=== PATIENT | male | born 1965 | race Caucasian/White ===

== ENCOUNTER → 2016-07-11 | Outpatient (CLI) | payer OTHER ==
--- NOTE | 2016-07-11 15:26 | P.PN ---
Subjective This is follow-up visit for this patient with a history of severe and chronic neck pain secondary to cervical spondylosis with facet arthropathy, we have done interventional pain management injection, left side radiofrequency ablation cervical area C5 /C6 , and is currently on pain medications [place] 10/ 325 every 6 hours ,Patient denies any side effects of the medication, denies excessive drowsiness or sleepiness, denies suicidal ideation, and reports that the current pain medication , currently patient complaining of mid back pain Physical Examinations : 1-Constitutiona : Cooperative , not in acute distress . 2-HEENT : nech ; supple , no Lymphadenopathy , no Thyromegaly , normal thyroid size . eyes : no ptosis , no icterus, no photophobia . ENT : normal of hearing , normal oropharynx , no Thrush . 3- Respiratory : Chest clear to auscultations Bilaterally , no wheezing , no Rhonchi . 4- Cardiovascular : regular rate and rhythem , S1 , S2 , no S3 , no S4. 5- Gastrointestinal : abdomen soft no tenderness , bowel sounds positive all four quadrents , no organomegally . 6- Genitourinary : Defferred . 7- neurologic : Cranial nerve II to XII intact , no focal neurological deffecit . 8-psychatric : alert , oriented X 3 , appropriate affect , intact judgment and insight . 9-Lymphatic : no Lymphadenopathy . 10- musculoskeltal : exams of the cervical spine = motor strength normal bilateral upper extremities Exams of the thoracic spine= positive facet loading test thoracic area mainly on the left side from T7 to T12 exams of the Lumber spine = motor strength lower extremities ,thigh and legs .5/5 Assessment and plan = - Chronic neck pain secondary to cervical spondylosis status post radiofrequency ablation of the left-sided medial branch cervical area neck pain improved after the radiofrequency Mid back pain= (new ) patient had positive facet loading test thoracic area -chronic and current use of high-risk medication (Opioids). - diagnoses, prognosis, and treatment options including but not limited to physical therapy, surgical interventions, interventional therapies and medication management including narcotics and adjuvant medication were discussed with the patient and all questions answered to the patient's satisfactiion I discussed with the patient the option of referring him to physical therapy versus chiropractors and patient prefer to see chiropractors , and patient will be seen in the pain clinic in 4-6 weeks, if he continued to have pain after that is being evaluated by chiropractors then we'll order MRI of the thoracic spine Objective - Vital Signs Vital signs: Vital Signs Temp 98.2 F 07/11/16 14:41 Pulse 63 07/11/16 14:41 Resp 16 07/11/16 14:41 BP 142/85 07/11/16 14:41 Pulse Ox Intake & Output 07/10/16 07/11/16 07/11/16 18:59 06:59 18:59 Weight 117.934 kg
== END | disposition home or self-care (01) ==
CPT/HCPCS: 99211

== ENCOUNTER 2020-06-16 08:08 | Day surgery (SDC) | payer OTHER ==
[2020-06-12 16:36] VITALS: BMI 37.5
[~2020-06-16 08:08] MED LIST: LACTATED RINGERS 1,000 ML IV SCH; LIDOCAINE 1% (10MG/ML) FOR IV START INTRADERMA PRN
[2020-06-16 08:31] VITALS: TEMP 96.9
[2020-06-16] MEDS ORDERED: PROPOFOL 10 MG/ML 20 ML VIAL IV ONE (08:46)
[2020-06-16 08:47] LABS: Glucose,Whole Blood 92 mg/dL (75-99)
--- NOTE | 2020-06-16 09:31 | P.PCN ---
Date of Procedure: 06/16/20 Description of Procedure: BRIEF HISTORY: Patient is a 55-year-old male presenting for outpatient colonoscopy for screening for malignant neoplasm of the colon. The patient reports multiple colonoscopies in the past and isn't polypectomy previously. No change in bowel habits or family history of colon cancer. PROCEDURE PERFORMED: Colonoscopy with polypectomy. PREOPERATIVE DIAGNOSIS: Screening for malignant neoplasm of the colon, last colonoscopy 5 years ago. ESTIMATED BLOOD LOSS: Minimal. IV sedation per Anesthesia. PROCEDURE: After informed consent was obtained, the patient, was brought into the endoscopy unit. IV sedation was administered by Anesthesia under continuous monitoring. Digital rectal examination was normal. Initially the Olympus CF-190 flexible video colonoscope was then inserted in the rectum, gradually advanced into the cecum without any difficulty. Careful examination was performed as the scope was gradually being withdrawn. Ileocecal valve and the appendiceal orifice were visualized and appeared normal. Prep was excellent. Mucosa of the cecum, ascen ding colon, transverse colon, descending colon, sigmoid colon, and rectum appeared normal. Diverticula scattered throughout the left colon. A flat 8 mm ascending colon polyp was removed with hot snare polypectomy. A sessile 5 mm transverse colon polyp was removed with cold snare polypectomy. Retroflexion was performed in the rectum and no lesions were seen, low-grade internal hemorrhoids and skin tags noted. The patient tolerated the procedure well. IMPRESSION: Flat ascending colon polyp removed with hot snare polypectomy. Transverse colon polyp removed with cold snare polypectomy. Left colonic diverticulosis. Moderate internal hemorrhoids. RECOMMENDATIONS: Findings of this examination were discussed with the patient and his family. Okay to resume diet. Okay to resume medications. Await pathology from polypectomy. Recommend repeat colonoscopy in 5 years for history of colon polyps pending pathology from polypectomies.
[2020-06-16 09:44] VITALS: BP 117/76
[2020-06-16 11:11] VITALS: PULSE 54; RESP 20
== END 2020-06-16 10:31 | disposition home or self-care (01) ==
LOC: ORWHC2ENDO 08:08
PROVIDERS: ATTEND Internal Medicine
DX: Z12.11 Encounter for screening for malignant neoplasm of colon (principal); D12.2 Benign neoplasm of ascending colon; K63.5 Polyp of colon; K57.30 Diverticulosis of large intestine without perforation or abscess without bleeding; K64.8 Other hemorrhoids; K21.9 Gastro-esophageal reflux disease without esophagitis; Z86.010 Personal history of colon polyps; Z90.49 Acquired absence of other specified parts of digestive tract; Z98.890 Other specified postprocedural states; I10 Essential (primary) hypertension; E07.9 Disorder of thyroid, unspecified; M19.90 Unspecified osteoarthritis, unspecified site; G25.81 Restless legs syndrome; R42 Dizziness and giddiness; Z79.890 Hormone replacement therapy; Z79.891 Long term (current) use of opiate analgesic; Z79.899 Other long term (current) drug therapy
CPT/HCPCS: 88305; 45385; J2704

== ENCOUNTER → 2023-09-25 | Outpatient (CLI) | payer OTHER ==
--- NOTE | 2023-09-25 19:21 | MR ---
EXAMINATION TYPE: MR lumbar spine wo con DATE OF EXAM: 09/25/2023 COMPARISON: None HISTORY: Low back pain for 8 months that radiates down right leg, toes of right foot numb. TECHNIQUE: Multiplanar, multisequence images of the lumbar spine were acquired without IV contrast. Findings: Lumbar vertebral segments are normal in height and alignment and there is no fracture or subluxation. There is a moderate remote anterior wedge compression fracture of T11. There is mild degenerative disease at the T11/T12, T12/L1, L1/L2 and L2/L3 levels where there is mild disc space narrowing and spondylosis.. There is no focal lumbar disc protrusion or herniation. There is marked facet arthropathy at the L4-5 and L5-S1 levels and mild to moderate facet arthropathy at the L1-2, L2-3 and L3-4 levels. At the L4-5 level, there is a small synovial cyst from the right facet joint and in combination with circumferential disc bulge, facet hypertrophy and thickening ligamentum flavum, there is a severe spi nal stenosis. The neuroforamina are patent bilaterally. The conus medullaris and cauda equina appear normal. Visualized sacrum and SI joints are normal. IMPRESSION: 1. Severe spinal stenosis at the L4-5 level as described above. 2. Moderate remote compression fracture T11. 3. Mild degenerative disc disease in the lower thoracic and upper lumbar spine but no lumbar disc her niation. 4. No significant neural foraminal stenosis. 5. Moderate to marked multilevel facet arthropathy greatest at the L4-5 and L5-S1 levels
== END | disposition home or self-care (01) ==
LOC: RADMRIMAIN 16:50
PROVIDERS: ATTEND Family Medicine
DX: M51.35 Other intervertebral disc degeneration, thoracolumbar region (principal); M47.816 Spondylosis without myelopathy or radiculopathy, lumbar region; M48.061 Spinal stenosis, lumbar region without neurogenic claudication
CPT/HCPCS: 72148

== ENCOUNTER → 2023-11-06 | Outpatient (CLI) | payer OTHER ==
--- NOTE | 2023-11-06 10:35 | CT ---
EXAMINATION TYPE: CT lumbar spine wo con CT DLP: 945 mGycm, Automated exposure control for dose reduction was used. DATE OF EXAM: 11/06/2023 10:28 AM COMPARISON: 11/05/2014. CLINICAL INDICATION:Male, 58 years old with history of M54.50 LOW BACK PAIN, UNSPECIFIED; PHH, Low ba ck pain TECHNIQUE: Multiple axial images were obtained from the midportion of T11 through the sacroiliac eric nts. Soft tissue and bone windows in coronal and sagittal planes were obtained and reviewed. Contrast used: mL of , (None, if empty). Oral contrast used: (None, if empty). FINDINGS: Alignment: There are 5 lumbar type vertebral bodies. Mild grade 1 anterolisthesis of L4 on L5. Bone: No evidence of fracture is identified. Multilevel degeneration changes with osteophyte formati on, disc space narrowing, facet joint arthropathy. Anterior wedging of the T11 vertebral body with 50 % height loss anteriorly. No evidence retropulsion. Severe facet joint arthropathy worse in the lower spine. Pseudoarthrosis of the spinous processes. Discs: T12-L1: No spinal canal or neural foraminal stenosis is identified. L1-L2: No spinal canal or neural foraminal stenosis is identified. L2-L3: Facet joint arthropathy and disc bulging result with moderate spinal canal stenosis and mild b ilateral neural foraminal stenosis. L3-L4: Facet joint arthropathy and disc bulging result with mild spinal canal stenosis and mild bilat eral neural foraminal stenosis. L4-L5: Mild grade 1 anterolisthesis of L4 and L5. Facet joint arthropathy and disc bulging result wit h moderate to severe spinal canal stenosis and mild bilateral neural foraminal stenosis. L5-S1: No spinal canal or neural foraminal stenosis is identified. Other: None IMPRESSION: 1. No evidence for spinal fracture. 2. Mild grade 1 anterolisthesis of L4 and L5. Facet joint arthropathy and disc bulging result with m oderate to severe spinal canal stenosis and mild bilateral neural foraminal stenosis. 3. Moderate to severe degeneration changes of the spine. 4. Anterior wedging of the T11 vertebral body with 50% height loss anteriorly. 5. 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
== END | disposition home or self-care (01) ==
LOC: RADCTMAIN 09:48
PROVIDERS: ATTEND Orthopaedic Surgery
DX: M43.16 Spondylolisthesis, lumbar region (principal); M47.816 Spondylosis without myelopathy or radiculopathy, lumbar region; M48.061 Spinal stenosis, lumbar region without neurogenic claudication; M99.73 Connective tissue and disc stenosis of intervertebral foramina of lumbar region; M51.36 Other intervertebral disc degeneration, lumbar region; M48.54XA Collapsed vertebra, not elsewhere classified, thoracic region, initial encounter for fracture; M96.0 Pseudarthrosis after fusion or arthrodesis
CPT/HCPCS: 72131

== ENCOUNTER → 2023-11-29 | Outpatient (CLI) | payer OTHER | END | disposition home or self-care (01) | LOC: LABPAT 10:52 | PROVIDERS: ATTEND Orthopaedic Surgery | DX: Z01.812 Encounter for preprocedural laboratory examination (principal); Z22.322 Carrier or suspected carrier of Methicillin resistant Staphylococcus aureus; M47.26 Other spondylosis with radiculopathy, lumbar region; M48.061 Spinal stenosis, lumbar region without neurogenic claudication | CPT/HCPCS: 86850; 86900; 86901; 87070 ==

== ENCOUNTER 2023-12-04 07:25 | Inpatient (IN) | payer OTHER ==
[2023-11-29 16:15] VITALS: BMI 39.3
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
[~2023-12-04 07:25] MED LIST changes: -LACTATED RINGERS 1,000 ML IV SCH; +ONDANSETRON 4 MG/2 ML VIAL IVP PRN; +TRANEXAMIC 1,000 MG/100ML-NACL 1,000 MG in SALINE 1 100ML.BAG IVPB PRN; +fentaNYL (PF) 50 MCG/ML 2 ML AMP IVP PRN
[2023-12-04] MEDS: ACETAMINOPHEN TAB 500 MG TAB PO PRN (08:20)
[2023-12-04] MEDS: GABAPENTIN 300 MG CAP PO PRN (08:21)
[2023-12-04 08:36] LABS: Glucose,Whole Blood 105 mg/dL (70-110)
[2023-12-04] MEDS: ONDANSETRON 4 MG/2 ML VIAL IVP ONE ×2 (08:38→13:56)
[2023-12-04] MEDS: LACTATED RINGERS 1,000 ML IV SCH (08:38)
[2023-12-04] MEDS: IV FLUID CONTINUATION 1,000 ML IV ONE ×2 (08:39→08:40)
[2023-12-04] MEDS: MIDAZOLAM 2 MG/2 ML VIAL IV PRN (08:54)
[2023-12-04] MEDS ORDERED: ePHEDrine 50 MG/ML 1 ML VIAL ONE (09:22)
[2023-12-04] MEDS ORDERED: PROPOFOL 10 MG/ML 20 ML VIAL IV ONE (09:22)
[2023-12-04] MEDS ORDERED: GLYCOPYRROLATE 0.2 MG/ML 2 ML VIAL ONE (09:22)
[2023-12-04] MEDS ORDERED: NEOSTIGMINE 1 MG/ML 10 ML VIAL ONE (09:22)
[2023-12-04] MEDS ORDERED: TRANEXAMIC 1,000 MG/100ML-NACL PREMIX BAG ONE (09:22)
[2023-12-04] MEDS ORDERED: fentaNYL (PF) 50 MCG/ML 2 ML AMP ONE (09:22)
[2023-12-04] MEDS ORDERED: ROCURONIUM 10 MG/ML (5 ML VIAL) IV ONE (09:22)
[2023-12-04] MEDS ORDERED: KETAMINE HCL IN 0.9 % NACL 50 MG/5 ML SYRINGE ONE (09:22)
[2023-12-04] MEDS ORDERED: SUCCINYLCHOLINE CHLORIDE 200 MG/10 ML VIAL IV ONE (09:22)
[2023-12-04] MEDS ORDERED: HYDROmorphone (PF) 1 MG/ML ONE (09:22)
[2023-12-04] MEDS ORDERED: LIDOCAINE 1% INJ 10MG/ML (20 ML MDV) ONE (09:22)
[2023-12-04] MEDS: ceFAZolin 3 GM in SODIUM CHLORIDE 0.9% 100 ML IVPB PRN (09:25)
[2023-12-04] MEDS: LACTATED RINGERS 1,000 ML IV ONE (12:45)
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
[2023-12-04] MEDS: THROMBIN (BOVINE) 5,000 UNIT VIAL TOPICAL ONE (13:15)
--- NOTE | 2023-12-04 14:18 | FL ---
EXAMINATION TYPE: FL guidance operating room, XR lumbar spine 2 or 3V Intraoperative/procedural fluor oscopic services were provided. Total fluoroscopy time is 34 seconds with a total of 7 submitted imag es to PACS. Please see the operative/procedural note for further details. DAP: 10,700 cGycm2
[2023-12-04] MEDS: droPERidol 5 MG/2 ML VIAL IVP ONE (14:35)
[2023-12-04] MEDS: HYDROmorphone 0.5 MG/0.5 ML SYRINGE IVP PRN (15:00)
[2023-12-04] MEDS ORDERED: SENNOSIDES-DOCUSATE SODIUM 1 EACH TAB PO PRN (16:27)
[2023-12-04] MEDS ORDERED: ONDANSETRON 4 MG/2 ML VIAL IVP PRN (16:27)
[2023-12-04] MEDS ORDERED: MAGNESIUM HYDROXIDE 2,400 MG/30 ML CUP PO PRN (16:27)
[2023-12-04] MEDS: DEXAMETHASONE SOD PHOSPHATE 4 MG/ML 1 ML VIAL IV ONE (17:59)
[2023-12-04] MEDS: 0.9% NACL WITH KCL 20 MEQ/L 1,000 ML IV SCH (18:16)
[2023-12-04] MEDS: KETOROLAC 15 MG/ML 1 ML VIAL IVP SCH (18:17)
[2023-12-04] MEDS: ceFAZolin 3 GM in SODIUM CHLORIDE 0.9% 100 ML IVPB SCH (18:17)
[2023-12-04] MEDS: ACETAMINOPHEN TAB 325 MG TAB PO SCH (18:20)
[2023-12-04] MEDS: CYCLOBENZAPRINE 10 MG TAB PO SCH (18:20)
[2023-12-04] MEDS: HYDROmorphone 1 MG/ML 1 ML SYRINGE IVP PRN (21:02)
[2023-12-04] MEDS: GABAPENTIN 300 MG CAP PO SCH (21:02)
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
[2023-12-05 05:21] LABS: Basophils % (A) 0 %; Eosinophils # (A) 0.1 k/uL (0-0.7); Eosinophils % (A) 1 %; HCT 33.8 % (39.0-53.0); HGB 11.2 gm/dL (13.0-17.5); Lymphocytes # (A) 0.7 k/uL (1.0-4.8); Lymphocytes % (A) 12 %; MCHC 33.2 g/dL (31.0-37.0); MCV 93.5 fL (80.0-100.0); Mean Platelet Volume 7.9; Monocytes # (A) 0.3 k/uL (0-1.0); Monocytes % (A) 5 %; Neutrophils # (A) 4.8 k/uL (1.3-7.7); Neutrophils % (A) 80 %; Platelet Count 152 k/uL (150-450); RBC 3.61 m/uL (4.30-5.90); RDW 12.6 % (11.5-15.5)
[2023-12-05 05:32] LABS: African American GFR (CKD) >90 (>60 ml/min/1.73 sqM); Anion Gap 1 mmol/L; Blood Urea Nitrogen 13 mg/dL (9-20); Calcium 8.3 mg/dL (8.4-10.2); Carbon Dioxide 28 mmol/L (22-30); Chloride 110 mmol/L (98-107); Glucose 86 mg/dL (74-99); Non-African American GFR(CKD) >90 (>60 ml/min/1.73 sqM); Potassium 4.3 mmol/L (3.5-5.1); Sodium 139 mmol/L (137-145)
[2023-12-05] MEDS: DEXAMETHASONE SOD PHOSPHATE 10 MG/ML 1 ML VIAL IV ONE (06:46)
[2023-12-05] MEDS: LEVOTHYROXINE 75 MCG TAB PO SCH (06:51)
--- NOTE | 2023-12-05 07:16 | P.PN ---
Subjective Progress Note Date: 12/05/23 Principal diagnosis: 1. L4-5 spondylosis with stenosis 2. Bilateral lower extremity radiculopathy, right greater then left 3. Facet cyst L4-5, large 4. Low back pain Patient seen and examined this morning. Patient is sitting at edge of bed. Patient states that his pain has been managed on current regimen. He does report that he has not been ambulatory since the procedure. Informed patient that physical therapy will begin to work with him today. Patient states that his LSO brace will be delivered to his home today. Family will be available to bring his brace up to the hospital. Prescription for rolling walker has been placed in patient's chart. He states that he has noticed improvement in his radiculopathy into the bilateral lower extremities since the procedure. Patient is looking forward to progressing with his recovery. Patient states that he has been urinating without difficulty since the procedure. Continue to encourage patient to be up in chair for all meals and to use incentive spirometer 10 times per hour while awake. Objective - Vital Signs Vital signs: Vital Signs Temp 99.0 F 12/05/23 02:09 Pulse 61 12/05/23 02:09 Resp 17 12/05/23 02:09 BP 96/56 12/05/23 02:09 Pulse Ox 98 12/05/23 02:09 FiO2 Intake & Output 12/04/23 12/05/23 12/05/23 18:59 06:59 18:59 Intake Total 2400 Output Total 700 875 Balance 1700 -875 Weight 135.5 kg 135.5 kg Intake: IV 2400 Output: Urine 600 875 Estimated Blood Loss 100 - Exam Physical Examination General: The patient is awake and alert, in no acute distress Skin: Skin is warm and dry with no obvious rashes or lesions. Bilateral lumbar surgical incisions, edges are well-approximated with richard intact. Scant amount of sanguinous drainage on dressing, new dressings applied. Eye: Pupils are equal, round and reactive to light, extra-ocular movements are intact; there is normal conjunctiva bilaterally. Neck: The neck is supple, there is no tenderness and ROM intact. Cardiovascular: There is a regular rate and rhythm. No murmur, rub or gallop is appreciated. Respiratory: Lungs are clear to auscultation, respirations are non-labored, breath sounds are equal. Gastrointestinal: Soft, non-distended, non-tender abdomen. Back: There is no tenderness to palpation in the midline, paralumbar, parathoracic or buttocks region. There is no obvious deformity . Musculoskeletal: ROM limited secondary to pain and stiffness from surgical procedure. Muscle strength in all major muscle groups of bilateral upper extremities 5/5, bilateral lower extremities 4/5. Neurological: CN 2-12 intact. There are no obvious motor or sensory deficits. Movement and coordination equal and intact. Sensory exam to light touch intact C5-T1 and intact from L2-S1. Reflexes 2/4 in bilateral upper and lower extremities. Negative Hoffmans, babinski, and clonus signs. Psychiatric: Cooperative, appropriate mood & affect, normal judgment. - Labs CBC & Chem 7: 12/05/23 04:29 12/05/23 04:29 Labs: Abnormal Lab Results - Last 24 Hours (Table) 12/04/23 12/05/23 12/05/23 Range/Units 08:35 04:29 04:29 RBC 3.61 L (4.30-5.90) m/uL Hgb 11.2 L (13.0-17.5) gm/dL Hct 33.8 L (39.0-53.0) % Lymphocytes # 0.7 L (1.0-4.8) k/uL Chloride 110 H (98-107) mmol/L Calcium 8.3 L (8.4-10.2) mg/dL Vitamin D 25-Hydroxy 21.5 L (30.0-100.0) ng/mL Assessment and Plan Assessment: Postop day 1: L4-L5 minimally invasive posterior lateral interbody decompression and fusion 1. L4-5 spondylosis with stenosis 2. Bilateral lower extremity radiculopathy, right greater then left 3. Facet cyst L4-5, large 4. Low back pain Plan: -Appreciate executive consultant and team management. -Activity: Ambulate QID, OOB all meals, up and about, limit lifting bending twisting to less than 5 lbs. Use walker or cane if needed for stability. -Daily PT/OT, increase ambulation strength and balance. -Brace when up and about, not needed in bed or chair -LSO brace should be delivered to patient's home today. -Prescription for rolling walker has been placed in chart -Pain control: Adequate at this time -Meds: reviewed -GI ppx: senna, Miralax -DVT PPX: Heparin -Hygiene: Shower today. Maintain dressing clean and dry. Meticulous cleaning after BMs away from the incision site -Encourage IS 10x/hr -Dispo: Anticipate discharge home with homecare later today vs tomorrow *I reviewed and discussed this case with my attending Dr. West, whom has reviewed this chart and films and is in agreement with assessment and plan of care as outlined above. I have personally seen and examined the patient, performed the documentation and the assessment and plan as written. Number of minutes spent on the visit: 20m.
--- NOTE | 2023-12-05 08:07 | CT ---
EXAMINATION TYPE: CT lumbar spine wo con DATE OF EXAM: 12/05/2023 COMPARISON: 11/06/2023 HISTORY: 58-year-old male post op lumbar fusion TECHNIQUE: Contiguous axial scanning of the lumbar spine without IV contrast. Coronal and sagittal re constructions performed. CT DLP: 1935.4 mGycm Automated exposure control for dose reduction was used. FINDINGS: Chronic anterior wedge deformity T11 vertebral body. Remaining vertebral body heights are preserved. Degenerative trace grade 1 retrolisthesis L1-L2. Postsurgical change L4-L5 posterior and interbody lumbar fusion. Right-sided laminotomy and foraminot kentrell change. The orthopedic hardware appears uncomplicated. No evidence of metal artifact limits detailed assessment of the spinal canal. No significant residual foraminal compromise seen. IMPRESSION: UNCOMPLICATED POSTOPERATIVE APPEARANCE L4-L5 POSTERIOR AND INTERBODY LUMBAR FUSION WITH RIGHT-SIDED L AMINOTOMY AND FORAMINOTOMY CHANGE. CHRONIC ANTERIOR WEDGE DEFORMITY T11.
[2023-12-05] MEDS: SODIUM CHLORIDE 0.9% IVPB ONE (08:21)
[2023-12-05] MEDS: CAFFEINE SODIUM BENZOATE IVPB ONE (08:21)
[2023-12-05] MEDS: HYDROcodone/APAP 10-325MG 1 EACH TAB PO PRN (08:22)
[2023-12-05] MEDS: DULoxetine HCL 60 MG CAPSULE.DR PO SCH (08:22)
[2023-12-05] MEDS: polyethylene glycoL 3350 17 GM POWD.PACK PO SCH (08:23)
--- NOTE | 2023-12-05 13:20 | P.PN ---
Subjective Progress Note Date: 12/05/23 Feels fine today, no chest pain no abdominal pain no nausea no vomiting no dizziness. Ambulating. Objective - Vital Signs Vital signs: Vital Signs Temp 98.2 F 12/05/23 07:07 Pulse 82 12/05/23 07:07 Resp 17 12/05/23 07:07 BP 130/75 12/05/23 07:07 Pulse Ox 95 12/05/23 12:38 FiO2 Intake & Output 12/04/23 12/05/23 12/05/23 18:59 06:59 18:59 Intake Total 2400 Output Total 700 875 Balance 1700 -875 Weight 135.5 kg 135.5 kg Intake: IV 2400 Output: Urine 600 875 Estimated Blood Loss 100 Other: Voiding Method Urinal - Exam General: non toxic, no distress, appears at stated age, obese Derm: no unusual rashes/lesions, warm Head: atraumatic, normocephalic, symmetric Eyes: EOMI, no lid lag, anicteric sclera, pupils equal round reactive to light ENT: Nose and ears atraumatic Neck: No cervical lymphadenopathy, trachea midline, supple Mouth: no lip lesion, mucus membranes moist Cardiovascular: S1S2 reg, no murmur, positive dorsalis pedis pulse bilateral, no edema Lungs: CTA bilateral, no rhonchi, no rales, no accessory muscle use Abdominal: soft, nontender to palpation, no guarding Ext: muscle strength 5 out of 5 in all 4 extremities grossly, no gross muscle atrophy, no contractures, lumbar incisions clean and dry Neuro: CN II-XI grossly intact, no gross focal neuro deficits Psych: Alert, oriented, appropriate affect - Labs CBC & Chem 7: 12/05/23 04:29 12/05/23 04:29 Labs: Abnormal Lab Results - Last 24 Hours (Table) 12/04/23 12/05/23 12/05/23 Range/Units 08:35 04:29 04:29 RBC 3.61 L (4.30-5.90) m/uL Hgb 11.2 L (13.0-17.5) gm/dL Hct 33.8 L (39.0-53.0) % Lymphocytes # 0.7 L (1.0-4.8) k/uL Chloride 110 H (98-107) mmol/L Calcium 8.3 L (8.4-10.2) mg/dL Vitamin D 25-Hydroxy 21.5 L (30.0-100.0) ng/mL Assessment and Plan Plan: Chronic conditions: Hypothyroidism Status post lumbar laminoforaminotomy with decompression interbody fusion Resume patient's home Synthroid and Cymbalta dose Defer management of pain control and DVT prophylaxis to the primary surgery service Continue supportive care
[2023-12-05] MEDS: HEPARIN SODIUM,PORCINE 5,000 UNIT/ML 1 ML VIAL SQ SCH (21:37)
[2023-12-06 07:54] VITALS: BP 138/66; PULSE 56; RESP 17; TEMP 97.7
--- NOTE | 2023-12-06 09:51 | P.PN ---
Subjective Progress Note Date: 12/06/23 Principal diagnosis: 1. L4-5 spondylosis with stenosis 2. Bilateral lower extremity radiculopathy, right greater then left 3. Facet cyst L4-5, large 4. Low back pain Patient seen and examined this morning. Patient is resting in bed. Patient states that his pain has been managed on current regimen. He states he worked with PT yesterday and has ambulated in the halls and has been up to chair. He states he is tolerating activity well. Patient states that his LSO brace was delivered to his home. Family will be available to bring his brace up to the hospital. He states that he has noticed improvement in his radiculopathy into the bilateral lower extremities since the procedure. Patient reports he is having difficulty initiating urination. He states once he is going, that he has no problems. We will order Flomax. Continue to encourage patient to be up in chair for all meals and to use incentive spirometer 10 times per hour while awake. Objective - Vital Signs Vital signs: Vital Signs Temp 97.7 F 12/06/23 07:09 Pulse 56 L 12/06/23 07:09 Resp 17 12/06/23 07:09 BP 138/66 12/06/23 07:09 Pulse Ox 99 12/06/23 07:09 FiO2 Intake & Output 12/05/23 12/06/23 12/06/23 18:59 06:59 18:59 Intake Total 1520 Output Total 2100 2300 Balance -2099 Intake: Intake, IV Titration 900 Amount 0.9% NaCl with KCl 20 Meq 900 /l 1,000 ml @ 75 mls/hr IV .[id number] ZENON Rx#: [id number] Oral 620 Output: Urine 2099 2299 Other: Voiding Method Urinal Urinal # Voids 5 - Exam Physical Examination General: The patient is awake and alert, in no acute distress Skin: Skin is warm and dry with no obvious rashes or lesions. Bilateral lumbar surgical incisions, edges are well-approximated with richard intact. Surgical dressing are CDI. Eye: Pupils are equal, round and reactive to light, extra-ocular movements are intact; there is normal conjunctiva bilaterally. Neck: The neck is supple, there is no tenderness and ROM intact. Cardiovascular: There is a regular rate and rhythm. No murmur, rub or gallop is appreciated. Respiratory: Lungs are clear to auscultation, respirations are non-labored, breath sounds are equal. Gastrointestinal: Soft, non-distended, non-tender abdomen. Back: There is no tenderness to palpation in the midline, paralumbar, parathoracic or buttocks region. There is no obvious deformity . Musculoskeletal: ROM limited secondary to pain and stiffness from surgical procedure. Muscle strength in all major muscle groups of bilateral upper extremities 5/5, bilateral lower extremities 4/5. Neurological: CN 2-12 intact. There are no obvious motor or sensory deficits. Movement and coordination equal and intact. Sensory exam to light touch intact C5-T1 and intact from L2-S1. Reflexes 2/4 in bilateral upper and lower extremities. Negative Hoffmans, babinski, and clonus signs. Psychiatric: Cooperative, appropriate mood & affect, normal judgment. - Labs CBC & Chem 7: 12/05/23 04:29 12/05/23 04:29 Assessment and Plan Assessment: Postop day 2: L4-L5 minimally invasive posterior lateral interbody decompression and fusion 1. L4-5 spondylosis with stenosis 2. Bilateral lower extremity radiculopathy, right greater then left 3. Facet cyst L4-5, large 4. Low back pain Plan: -Appreciate principal consultant and team management. -Activity: Ambulate QID, OOB all meals, up and about, limit lifting bending twisting to less than 5 lbs. Use walker or cane if needed for stability. -Daily PT/OT, increase ambulation strength and balance. -Brace when up and about, not needed in bed or chair -LSO brace delivered to patient's home -Prescription for rolling walker has been placed in chart -Pain control: Adequate at this time -Meds: reviewed -GI ppx: senna, Miralax -DVT PPX: Heparin -Hygiene: Shower today. Maintain dressing clean and dry. Meticulous cleaning after BMs away from the incision site -Encourage IS 10x/hr -Dispo: Anticipate discharge home with homecare later today. *I reviewed and discussed this case with my attending Dr. West, whom has reviewed this chart and films and is in agreement with assessment and plan of care as outlined above. I have personally seen and examined the patient, performed the documentation and the assessment and plan as written. Number of minutes spent on the visit: 20m.
--- NOTE | 2023-12-06 09:59 | P.DS ---
Providers Date of admission: 12/04/23 16:27 Expected date of discharge: 12/06/23 Attending physician: Freeman West DO Consults: 12/04/23 16:27 Consult Physician Routine Consulting Provider: Anson Rae Consult Reason/Comments: medical management Do you want consulting provider notified?: Yes Primary care physician: Majo Megan [facility] Hospital Course: Hospital Course: The patient was evaluated preoperatively and found to have the diagnosis of lumbar spondylosis with stenosis. They underwent appropriate preoperative care and were willing to undergo the intended procedure. They underwent a successful L4-L5 minimally invasive PLIF, were recovered appropriately and sent to the floor. While on the floor they worked with physical therapy, occupational therapy and nursing to enhance their recovery experience. Their pain was well controlled through their stay and they were started on appropriate medications, DVT ppx modalities, activity and dietary needs. Daily labs were monitored closely, and transfusions were only used when necessary. Medicine as well as other consulting services have made their input and have helped with our team approach and multidisciplinary care. PT milestones have been met and passed and they have made the recommendation of home for this patient and treating providers agree with this care path. The patient will be discharged home with appropriate medications, instructions and follow-up information and in stable condition. Patient Condition at Discharge: Good Plan - Discharge Summary Discharge Rx Participant: No New Discharge Prescriptions: New cefaDROXiL [Duricef] 500 mg PO Q12HR #10 cap Cyclobenzaprine [Flexeril] 5 mg PO TID PRN #40 tablet PRN Reason: Muscle Spasm HYDROcodone/APAP 10-325MG [[place] 10-325] 1 tab PO Q4-6H PRN #40 tab PRN Reason: Pain Tamsulosin [Flomax] 0.4 mg PO DAILY #14 cap Gabapentin 300 mg PO TID #90 cap Sennosides/Docusate Sodium [Senna Plus 8.6-50 mg Tablet] 1 each PO DAILY PRN #20 tablet PRN Reason: Constipation No Action Levothyroxine Sodium [Synthroid] 150 mcg PO QAM HYDROcodone/APAP 7.5-325MG [[place] 7.5-325] 1 tab PO TID DULoxetine HCL [Cymbalta] 60 mg PO QAM Discharge Medication List Levothyroxine Sodium [Synthroid] 150 mcg PO QAM 11/11/15 [History] DULoxetine HCL [Cymbalta] 60 mg PO QAM 11/29/23 [History] HYDROcodone/APAP 7.5-325MG [[place] 7.5-325] 1 tab PO TID 11/29/23 [History] Cyclobenzaprine [Flexeril] 5 mg PO TID PRN #40 tablet 12/06/23 [Rx] Gabapentin 300 mg PO TID #90 cap 12/06/23 [Rx] HYDROcodone/APAP 10-325MG [[place] 10-325] 1 tab PO Q4-6H PRN #40 tab 12/06/23 [Rx] Sennosides/Docusate Sodium [Senna Plus 8.6-50 mg Tablet] 1 each PO DAILY PRN #20 tablet 12/06/23 [Rx] Tamsulosin [Flomax] 0.4 mg PO DAILY #14 cap 12/06/23 [Rx] cefaDROXiL [Duricef] 500 mg PO Q12HR #10 cap 12/06/23 [Rx] Follow up Appointment(s)/Referral(s): Freeman West DO [Doctor of Osteopathic Medicine] - 12/18/23 9:45 am [facility] Visiting Nurse, [NON-STAFF] - 1-2 Days ([facility] will call you to schedule your in home nursing and physical therapy visits. ) Patient Instructions/Handouts: Posterior Lumbar Interbody Fusion (DC), Lumbar Spinal Fusion (DC), Lumbar Spinal Fusion (GEN) Activity/Diet/Wound Care/Special Instructions: Spine Discharge and Recovery Instructions Date of Surgery: 12/04/2023 Diagnosis: L4 5 severe stenosis facet arthrosis spinal stenosis with spondylolisthesis Procedure: L4-L5 open posterior lateral and interbody fusion Medications: see list All medication refills should be obtained through your primary care doctor or your clinic spine surgeon. Please discuss prescription refills at your follow up appointment. Do not call the hospital for medication refills. Activity: [Encourage ambulation with assist of walker] [OOB 6-8x daily] [PT/OT daily work on balance, strength and mobility] [Up in chair with all meals, OOB all meals] [Shower daily] Brace: Wear LSO brace when up and about at all times. Do not wear while sleeping or showering. May take breaks from brace while sitting or laying and resting. Dressing: Leave your dressing in place for a total of 3 days post operatively. Then you may remove your dressing and leave open to air. Keep the area clean and if not able to keep area clean, then cover with sterile gauze and tape. Showering: You may shower 3 days after your procedure allowing soap and water to run over incision. Do not scrub. Do not soak. Blot dry. Follow up: Please confirm a follow up appointment with your surgeon 2 weeks post operatively. Please make an appointment to follow up with your PCP in 1-2 weeks after surgery for evaluation 3 phase, 3-week plan POST OP WEEKS 1-3 1. Lifting/carrying/pushing/pulling limited to less than 5 pounds. 2. Do not sit for longer than 15 minutes at one time. Get up and walk around. Prolonged sitting is NOT advised. If you lay down, see if you can tolerate laying down on you front (belly side) 3. Walk for periods of 15 minutes = 1 mile but no longer; do it multiple times times each day. 4.Ice your low back after activity. POST OP WEEKS 3-6 1. Lifting limited to less than 20 pounds. 2. Do not sit for longer than 30 minutes at a time. Frequently change positions. Use a sit-to stand workstation or take frequent breaks from sitting if you have returned to work. 3. Walk for 30 minutes each day. If possible, do these three or more times a day POST OP WEEKS 6+ At your 6-week appointment we will give you a physical therapy referral to focus on a core stabilization and strengthening program. You should also work on leg & buttock strengthening, hamstring & quadriceps stretching, and continue a low impact aerobic activity program such as swimming, walking, or riding a stationary bicycle. During the initial 6 weeks after your surgery, you are at the highest risk of re-injuring your spine. You should generally avoid BLTs (bending, lifting and twisting combination motions) and follow the above guidelines to reduce the chance of reinjury. You can anticipate post op appointments in our office at approximately 3 weeks and 6 weeks after your surgery. INCISION CARE: If your incision is not draining you do NOT need to cover it with a dressing. Keep your incision clean, dry and intact. In most cases, we apply skin glue, richard or sutures to the incision at the time of surgery. This will be like a crust or have the appearance of a scab and will fall off in time on its own. The stitches or richard need to be removed at 3 weeks post op appointment. You may begin to shower 3 days after surgery (this allows the glue to bruno well). However, please avoid scrubbing the incision site or peeling off any of the skin glue. This will ensure optimal healing of your incision. Also, during this time avoid soaking the incision area in water - this includes swimming pools, hot tubs or baths. No ointments, lotions or oils on the incision until your surgeon allows. Leave richard, sutures or glue in place. Neurological dysfunction that comes on suddenly can also be a sign of a stroke. Below some common symptoms of a stroke are listed: B - balance difficulty such as sudden onset walking or leaning to one side - NEW E - eye problem such as sudden double vision or trouble seeing on one side - NEW F - Facial weakness or numbness on one side - NEW A - Arm or leg weakness or numbness on one side - NEW S - Slurred speech or difficulty with word finding - NEW T - Time is BRAIN! Call 911 as soon as you recognize these symptoms Diet: Consume a regular diet rich in vegetables and lean protein such as chicken or fish. You should consume in a ratio of approximately 20% fats|40% carbohydrates|40%protein. Vegetables, sweet potatoes, brown rice or quinoa are examples of good carbohydrates. Chips, white bread, cookies and sweets/sugar are examples of bad carbohydrates. Limit your bad carbs, go wild with good carbs. "Life's Simple 7" Guidelines as per [place] [employer] These will help you reclaim your life after surgery and street light servicer helper in your recovery, keeping in mind your restrictions. (1) Get Active. Physical activity can help people lose weight, control high blood pressure and cholesterol, feel emotionally better, and sleep better. (2) Control Cholesterol. Avoid a diet high in saturated fat, trans fat, & cholesterol. Limit whole milk & cream, ice cream, butter, egg yolks, processed meats (like sausage and hot dogs), and fatty meats. Choose healthy foods that are low in saturated fat, trans fat and cholesterol which include: Fruits and vegetables, fiber rich grain products (like whole grain pasta and brown rice), lean meat such as chicken, fish, nuts, seeds, and legumes. (3) Eat Better. Eat small portions. Shop at the grocery with a list and do not stray from it. Tips for a healthy diet include: Limit sodium intake to less than 1500mg daily, avoid prepackaged, processed, and fast foods, choose a diet rich in fruits, vegetables, and whole grain, high fiber foods, and limit saturated & cholesterol in your diet. (4) Manage Blood Pressure. If you have high blood pressure, you should have a cuff at home so that you can check your blood pressure regularly. Be sure you have a good cuff. An arm one is generally better than a wrist one. Bring the cuff to a doctor's appointment to validate that the measurements that your cuff are taking are accurate. Take your blood pressure twice daily when you are sitting down and relaxing. Record the numbers in a log and bring this log with you to your doctors' appointments. (5) Lose Weight if your BMI is above 25. A healthy BMI is between 19-25. To calculate Your BMI, you may use a Standard BMI Calculator on the NIH BMI website: <www.nhlbi.nih.gov/guidelines/obesity/BMI/bmicalc.htm>. Weigh oneself daily. If you are overweight, set a goal to lose weight. A pound a week loss if needed is a good target. (6) Reduce Blood Sugar. Limit foods and liquids with "added sugars." (Added sugars include sucrose, fructose, glucose, maltose, dextrose, high fructose corn syrup, corn syrup, concentrated fruit juice and honey). (7) Stop Smoking. If you smoke, quitting smoking is one of the best things that you can do for your health. Smoking increases your risk of heart attack, stroke, and peripheral vascular disease, which is a build-up of plaque in your arteries. Please discard all the cigarettes and lighters in your house. Have a plan for what you will do when you have the urge to smoke. Direct and second- hand smoke shortens your life as well as the lives of your family, friends and others around you. For your health and the health of those around you, please consider quitting! Proper Bending Body Mechanics: Maintain a wide stance with one foot slightly in front of the other. Keep your back straight. Bend utilizing the strength in your hips and knees. Do not bend at the waist. Maintain the lifted object at your waist-level close to your body. Avoid lifting weight that causes immediately pain or pain anywhere in the body afterwards. Smoking/Nicotine If there was ever one thing that you could do to increase your overall health, decrease your risk of cardiovascular problems by about 39% the second you make the choice, it is to STOP SMOKING. Your body's most instant gratification is the second you stop smoking. We have all heard the studies, read the articles but it is true, smoking is extremely bad for your overall health, and moreover it is detrimental to your bone health. Nicotine, IN ANY FORM, kills bone cells, prevents your body from healing fractures, and significantly prolongs healing after surgery. In spine surgery specifically, it increases your risk of not healing your bones to create a fusion and increases your risk of having a revision surgery due to this up to 60%. I know it is hard. I know it feels impossible. But there are ways. Take control of your life. We are here to help you through it. And when you are ready, ask us and we can direct you to help if you desire. Use the START Plan to Quit Smoking (please visit the Helpguide.org website listed below for more information): S = Set a quit date. Choose a date within the next 2 weeks, so you have enough time to prepare without losing your motivation to quit. If you mainly smoke at work, quit on the weekend, so you have a few days to adjust to the change. T = Tell family, friends, and co-workers that you plan to quit. Let your friends and family in on your plan to quit smoking and tell them you need their support and encouragement to stop. Look for a quit dion who wants to stop smoking as well. You can help each other get through the rough times. A = Anticipate and plan for the challenges you'll face while quitting. Most people who begin smoking again do so within the first 3 months. You can help yourself make it through by preparing ahead for common challenges, such as nicotine withdrawal and cigarette cravings. R = Remove cigarettes and other tobacco products from your home, car, and work. Throw away all your cigarettes (no emergency pack!), lighters, ashtrays, and matches. Wash your clothes and freshen up anything that smells like smoke. Shampoo your car, clean your drapes and carpet, and steam your furniture. T = Talk to your doctor about getting help to quit. Your doctor can prescribe medication to help with withdrawal and suggest other alternatives. If you can't see a doctor, you can get many products over the counter at your local pharmacy or grocery store, including the nicotine patch, nicotine lozenges, and nicotine gum. Resources for Quitting Smoking: <https://www.[place].gov/ documents/[facility]/Quit_Tobacco_Resources_for_patients_313480_7.pdf> Supplementation: Take recommended dosages of Vitamin D and Calcium to help fortify your bones and help them to heal. See your health maintenance packet for dosages and recommended levels. DVT/VTE prophylaxis: You will be given compression stockings from the hospital. Wear these daily for the first two weeks after surgery. You may take them off at night. You may be prescribed a medication to help thin your blood. Take this as directed. If you are not prescribed this medication, early and frequent ambulation has been shown to be the best prophylaxis to deep vein thrombosis and sequelae related to this event. Discharge Disposition: HOME WITH HOME HEALTH SERVICES
--- NOTE | 2023-12-06 10:00 | P.PN ---
Subjective Progress Note Date: 12/06/23 Feels fine today, no chest pain no abdominal pain no nausea no vomiting no dizziness. Ambulating. Remains afebrile Tmax 99.1 Objective - Vital Signs Vital signs: Vital Signs Temp 97.7 F 12/06/23 07:09 Pulse 56 L 12/06/23 07:09 Resp 17 12/06/23 07:09 BP 138/66 12/06/23 07:09 Pulse Ox 96 12/06/23 08:28 FiO2 Intake & Output 12/05/23 12/06/23 12/06/23 18:59 06:59 18:59 Intake Total 1520 Output Total 2099 2300 Balance -2099 Intake: Intake, IV Titration 900 Amount 0.9% NaCl with KCl 20 Meq 900 /l 1,000 ml @ 75 mls/hr IV .[id number] ZENON Rx#: [id number] Oral 620 Output: Urine 2099 230 Other: Voiding Method Urinal Urinal # Voids 5 - Exam General: non toxic, no distress, appears at stated age, obese Derm: no unusual rashes/lesions, warm Head: atraumatic, normocephalic, symmetric Eyes: EOMI, no lid lag, anicteric sclera, pupils equal round reactive to light ENT: Nose and ears atraumatic Neck: No cervical lymphadenopathy, trachea midline, supple Mouth: no lip lesion, mucus membranes moist Cardiovascular: S1S2 reg, no murmur, positive dorsalis pedis pulse bilateral, no edema Lungs: CTA bilateral, no rhonchi, no rales, no accessory muscle use Abdominal: soft, nontender to palpation, no guarding Ext: muscle strength 5 out of 5 in all 4 extremities grossly, no gross muscle atrophy, no contractures, lumbar incisions clean and dry Neuro: CN II-XI grossly intact, no gross focal neuro deficits Psych: Alert, oriented, appropriate affect - Labs CBC & Chem 7: 12/05/23 04:29 12/05/23 04:29 Assessment and Plan Plan: Chronic conditions: Hypothyroidism Status post lumbar laminoforaminotomy with decompression interbody fusion, continue PT OT Resume patient's home Synthroid and Cymbalta dose Defer management of pain control and DVT prophylaxis to the primary surgery service Continue supportive care Discharge home today.
[2023-12-06] MEDS: TAMSULOSIN 0.4 MG CAP.ER.24H PO SCH (11:14)
--- NOTE | 2023-12-07 16:10 | CDI ---
Documentation Clarification Form Date: 12/07/2023 04:03:38 PM From: Apurva Parnell Phone: Admit Date: 12/04/2023 04:27:00 PM Patient Name: Narayan Navarro Visit Number: [id number] Discharge Date: 12/06/2023 05:48:00 PM ATTENTION: The Clinical Documentation Specialists (CDI) and [facility] Coding Staff appreciate your assistance in clarifying documentation. Please respond to the clarification below the line at the bottom and electronically sign. The CDI & [facility] Coding staff will review the response and follow-up if needed. Please note: Queries are made part of the Legal Health Record. If you have any questions, please contact the author of this message via ITS. Dr. Freeman West Patient has a documented BMI of 40.5. Additional clarification is requested. History/Risk Factors: 58yo M, L4-5 spondylolisthesis & spondylosiswithstenosis, BLE radiculopathy R>L, facetcystL4-5, hypothyroidism, osteophyte, LT opiate analgesic use Clinical Indicators: Height: 6'1" Weight: 290 lbs Treatments: THIS CASE TOOK 75% LONGER THAN EXPECTED DUE TO CORMORBID CONDITIONS, HIGHBMI >40, EXTENT OF LUMBAR DISEASE AND HIGH TECHNICALITY OF THE CASE. Please clarify if patients BMI indicates an additional diagnosis: [ ] Morbid (Extreme) (severe) obesity [ ] No additional diagnosis/not clinically significant [ ] Other, please specify ____ [ ] Unable to determine Reference: NIH Classification for BMI Overweight BMI 2529.9 Obesity (Class 1) BMI 3034.9 Obesity (Class 2) BMI 3539.9 Morbid obesity (Class 3/Extreme/severe) BMI =40 (Template Last Revised: October 2020) Morbid (Extreme) (severe) obesity MTDD
== END 2023-12-06 17:48 | disposition home health service (06) | DRG 304 ==
LOC: OR 07:25 → 4SSUR 16:27 → OR 16:27 → 4SSUR 16:40
PROVIDERS: ADMIT Orthopaedic Surgery; ATTEND Orthopaedic Surgery
PROC: 01NB0ZZ Release Lumbar Nerve, Open Approach (ICD-10-PCS; 2023-12-04)
PROC: 0ST20ZZ Resection of Lumbar Vertebral Disc, Open Approach (ICD-10-PCS; 2023-12-04)
PROC: 8E0WXBZ Computer Assisted Procedure of Trunk Region (ICD-10-PCS; 2023-12-04)
PROC: 0SG00AJ Fusion of Lumbar Vertebral Joint with Interbody Fusion Device, Posterior Approach, Anterior Column, Open Approach (ICD-10-PCS; principal; 2023-12-04 09:00)
DX: M43.16 Spondylolisthesis, lumbar region (principal); E66.01 Morbid (severe) obesity due to excess calories; Z68.41 Body mass index [BMI] 40.0-44.9, adult; G96.198 Other disorders of meninges, not elsewhere classified; E03.9 Hypothyroidism, unspecified; M47.26 Other spondylosis with radiculopathy, lumbar region; M48.062 Spinal stenosis, lumbar region with neurogenic claudication; M25.78 Osteophyte, vertebrae; Z79.890 Hormone replacement therapy; Z79.899 Other long term (current) drug therapy; Z79.891 Long term (current) use of opiate analgesic
CPT/HCPCS: 72100; 72131; 80048; 82306; 85025; 85730; 94760

== ENCOUNTER → 2024-10-04 | Outpatient (CLI) | payer OTHER ==
--- NOTE | 2024-10-04 15:46 | MR ---
EXAMINATION TYPE: MR shoulder LT wo con DATE OF EXAM: 10/04/2024 9:05 AM COMPARISON: No radiographic correlation available CLINICAL INDICATION: Male, 59 years old with history of M25.512 PAIN IN LEFT SHOULDER, Lt shoulder pa in TECHNIQUE: Multiplanar, multisequence imaging of the left shoulder shoulder is performed without cont rast. FINDINGS: Moderate to large effusion along the bicipital groove. Some mild synovial thickening and septations a re present within the fluid. Split tear of the intracapsular portion of the long biceps tendon extending down into the upper to mi d bicipital groove. Heterogeneous signal of the subscapularis tendon. Some partial tearing of the far inferior third fibe rs. The majority of the tendon remains intact. There is moderate degenerative change at the acromial clavicular joint. Effusion distends the joint s pace and there is either prominent synovial proliferation or small loose bodies within the effusion. Ganglion cyst tracks superiorly and medially from the fusion measuring 1.2 cm and 1.0 cm. There is a small to moderate subacromial/subdeltoid bursal effusion with similar synovial debris and possible numerous small loose bodies anteriorly. More focal fluid accumulation/ganglion overlying the supraspinatus muscle belly measuring 2.0 x 2.0 cm. There is a high-grade tear involving the anterior supraspinatus tendon, suspected full-thickness cristina uring 1.1 cm long and 1.0 cm AP. Heterogeneity of both supraspinatus and infraspinatus tendon suggest ing tendinosis. Minimal fatty streaks throughout the rotator cuff musculature without fatty atrophy. The glenohumeral joint appears intact. Mild diffuse thinning of articular cartilage. No discrete labr al tear given on arthrographic technique and no care labral cyst. No significant joint effusion. No Hill-Sachs deformity or os acromiale. Patchy red marrow hyperplasia. No suspicious bone marrow replacement. IMPRESSION: 1. Split tear of the intracapsular portion of the long head biceps tendon extending into the upper to mid bicipital groove. Associated moderate tenosynovitis. 2. Moderate AC joint OA but with relatively large effusion distending the joint. This effusion shows a couple adjacent ganglion cysts measuring up to 1.2 cm. There is synovial debris and numerous tiny l oose bodies within the effusion. A small to moderate bursal effusion also contain similar synovial de bris and tiny loose bodies. Similar findings involving the long head biceps tenosynovitis. Consider i ndolent atypical infection or an inflammatory arthropathy such as rheumatoid arthritis. 3. Diffuse rotator cuff tendinosis with a high-grade, possible full-thickness tear of the anterior mora praspinatus tendon measuring 1.1 x 1.0 cm. No muscle atrophy. [facility], Workstation: [facility], 10/04/2024 3:43 PM
== END | disposition home or self-care (01) ==
LOC: RADMRIMAIN 08:10
PROVIDERS: ATTEND Family Medicine
DX: S46.112A Strain of muscle, fascia and tendon of long head of biceps, left arm, initial encounter (principal); M65.912 Unspecified synovitis and tenosynovitis, left shoulder; M19.012 Primary osteoarthritis, left shoulder; M67.814 Other specified disorders of tendon, left shoulder; M67.412 Ganglion, left shoulder; X58.XXXA Exposure to other specified factors, initial encounter